=== PATIENT | male | born 1990 | race Caucasian/White ===

== ENCOUNTER 2016-10-10 20:07 | Emergency (ER) | payer OTHER ==
[2016-10-10] MEDS ORDERED: LIDOCAINE 2% 10 ML MDV ONE ×2 (20:20→21:28)
[2016-10-10] MEDS ORDERED: oxyCOD/ACETAMIN 5 MG/325 MG TABLET PO STA (21:19)
[2016-10-10] MEDS ORDERED: oxyCODONE/ACET 5/325 Prepack 4 PO STA (21:19)
[2016-10-10] MEDS ORDERED: ceFAZolin 1 GM VIAL IM STA (21:19)
[2016-10-10] MEDS ORDERED: oxyCOD/ACETAMIN 5 MG/325 MG TABLET PO ONE (21:22)
[2016-10-10] MEDS ORDERED: ceFAZolin 1 GM VIAL ONE (21:23)
[2016-10-10] MEDS ORDERED: oxyCODONE/ACET 5/325 Prepack 4 PO ONE (21:23)
[2016-10-10] MEDS ORDERED: LIDOCAINE 2% URO-JET 5 ML SYRINGE UR ONE (21:28)
[2016-10-10] MEDS ORDERED: WATER FOR INJECTION,STERILE 10 ML ONE (21:40)
== END 2016-10-10 22:09 | disposition home or self-care (01) ==
DX: S62.637B Displaced fracture of distal phalanx of left little finger, initial encounter for open fracture (principal); S62.613B Displaced fracture of proximal phalanx of left middle finger, initial encounter for open fracture; S61.221A Laceration with foreign body of left index finger without damage to nail, initial encounter; S61.223A Laceration with foreign body of left middle finger without damage to nail, initial encounter; S61.225A Laceration with foreign body of left ring finger without damage to nail, initial encounter; W45.8XXA Other foreign body or object entering through skin, initial encounter; Y92.015 Private garage of single-family (private) house as the place of occurrence of the external cause
CPT/HCPCS: 64450; 73130; 96372; 99283; 99284; A9270

== ENCOUNTER 2016-10-11 08:07 | Day surgery (SDC) | payer OTHER ==
[2016-10-11] MEDS ORDERED: ceFAZolin 2 GM/50 ML 50 ML IV ONE (08:13)
[2016-10-11] MEDS ORDERED: LACTATED RINGERS 1,000 ML IV ONE ×3 (09:18→17:49)
[2016-10-11] MEDS ORDERED: MIDAZOLAM 2 MG/2 ML VIAL ONE (11:39)
[2016-10-11] MEDS ORDERED: MIDAZOLAM 2 MG/2 ML VIAL IVP ONE (14:25)
[2016-10-11] MEDS ORDERED: LIDOCAINE-MPF 2% 5 ML VIAL IM ONE (14:25)
[2016-10-11] MEDS ORDERED: PROPOFOL 200 MG/20 ML VIAL IVP ONE (14:25)
[2016-10-11] MEDS ORDERED: ONDANSETRON 4 MG/2 ML VIAL IVP ONE (14:25)
[2016-10-11] MEDS ORDERED: fentaNYL 100 MCG/2 ML VIAL IVP ONE (14:25)
[2016-10-11] MEDS ORDERED: DEXAMETHASONE 4 MG/ML VIAL IVP ONE (14:25)
[2016-10-11] MEDS ORDERED: KETOROLAC 30 MG/ML VIAL IVP ONE (14:25)
[2016-10-11] MEDS: fentaNYL 100 MCG/2 ML VIAL ONE ×2 (17:05→17:10)
[2016-10-11] MEDS: HYDROmorphone 1 MG/ML SYRINGE ONE ×2 (17:16→17:24)
[2016-10-11 18:12] VITALS: BP 120/60
--- NOTE | 2016-10-13 08:15 | XRAY Report ---
INTRAOPERATIVE LEFT FINGERS: 10/11/2016 CLINICAL INDICATION: K-wire fixation. FINDINGS: Single intraoperative matrix image demonstrates K-wire fusion of the distal interphalangea l joints of the 3rd and 4th fingers. Five seconds of fluoroscopy time was provided to Dr. Vyas; one spot image obtained. IMPRESSION: INTRAOPERATIVE IMAGING OF K-WIRE FIXATIONS OF THE LEFT 3RD AND 4TH FINGERS. JOB #: [id number] EXT JOB #:[id number]
--- NOTE | 2016-10-13 10:12 | XRAY Report ---
C-ARM SERVICES: 10/11/2016 Fluoroscopy time only, no images submitted for interpretation. Fluoroscopy time 0 minutes, 5 seconds. SABINAD
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
== END 2016-10-11 08:08 | disposition home or self-care (01) ==
LOC: SDS 08:07
PROVIDERS: ATTEND Orthopaedic Surgery
PROC: 0JBK0ZZ Excision of Left Hand Subcutaneous Tissue and Fascia, Open Approach (ICD-10-PCS; 2016-10-11)
PROC: 0JBK0ZZ Excision of Left Hand Subcutaneous Tissue and Fascia, Open Approach (ICD-10-PCS; 2016-10-11)
PROC: 0PHV34Z Insertion of Internal Fixation Device into Left Finger Phalanx, Percutaneous Approach (ICD-10-PCS; 2016-10-11)
PROC: 0LQ80ZZ Repair Left Hand Tendon, Open Approach (ICD-10-PCS; principal; 2016-10-11 12:15)
DX: S66.323A Laceration of extensor muscle, fascia and tendon of left middle finger at wrist and hand level, initial encounter (principal); S62.633B Displaced fracture of distal phalanx of left middle finger, initial encounter for open fracture; W23.0XXA Caught, crushed, jammed, or pinched between moving objects, initial encounter; Y93.89 Activity, other specified; Z87.891 Personal history of nicotine dependence
CPT/HCPCS: 11011; 26418; 26756; 73140; C1713; J0690; J1170; J7120